=== PATIENT | male | born 1955 | race Caucasian/White ===

== ENCOUNTER 2017-01-23 13:36 | Emergency (ER) | payer OTHER ==
[2017-01-23 13:51] VITALS: BP 118/92
[2017-01-23] MEDS ORDERED: Gelfoam 12-7 ADSORBABL SPONGE* 1 EA SPONGE TOPICAL ONE (13:53)
--- NOTE | 2017-01-23 14:00 | UC ---
Hand/Wrist HPI - HPI Summary HPI Summary: Cut R index finger on a router, area of skin missing and profuse bleeding, unable to control it. Last tetanus 2012. - History Of Current Complaint Chief Complaint: UCLaceration Stated Complaint: FINGER LACERATION Time Seen by Provider: 01/23/17 13:43 Hx Obtained From: Patient ?: No Onset/Duration: Sudden Onset Severity Initially: Moderate Severity Currently: Moderate Character Of Pain: Sharp Aggravating Factor(s): Other - touch Alleviating: Compression Related History: Dominant Hand Right - Allergies/Home Medications Allergies/Adverse Reactions: Allergies Allergy/AdvReac Type Severity Reaction Status Date / Time Tramadol Allergy Unknown Verified 03/10/16 13:04 Reaction Details PMH/Surg Hx/FS Hx/Imm Hx Previously Healthy: Yes Other History Of: Negative For: Anticoagulant Therapy - Surgical History Surgical History: Yes Surgery Procedure, Year, and Place: scrotal surgery - Family History Known Family History: Positive: None, Other - no respiratory disease Negative: Cardiac Disease - Social History Alcohol Use: Daily Substance Use Type: None Smoking Status (MU): Never Smoked Tobacco - Immunization History Most Recent Tetanus Shot: Apr 2013 Review of Systems Constitutional: Negative Skin: Other - R index finger injury Eyes: Negative ENT: Negative Respiratory: Negative Cardiovascular: Negative Gastrointestinal: Negative Genitourinary: Negative Motor: Negative Neurovascular: Negative Musculoskeletal: Negative Neurological: Negative Psychological: Negative All Other Systems Reviewed And Are Negative: Yes Physical Exam Triage Information Reviewed: Yes Appearance: Well-Appearing, No Pain Distress, Well-Nourished Vital Signs: Initial Vital Signs Temp 98 F 01/23/17 13:47 Pulse 54 01/23/17 13:47 Resp 16 01/23/17 13:47 BP 118/92 01/23/17 13:47 Pulse Ox 100 01/23/17 13:47 Vital Signs Reviewed: Yes Eye Exam: Normal Eyes: Positive: Conjunctiva Clear ENT Exam: Normal ENT: Positive: Normal ENT inspection, Hearing grossly normal, Pharynx normal, TMs normal Dental Exam: Normal Neck exam: Normal Neck: Positive: Supple, Nontender, No Lymphadenopathy Respiratory Exam: Normal Respiratory: Positive: Chest non-tender, Lungs clear, Normal breath sounds, No respiratory distress, No accessory muscle use Cardiovascular Exam: Normal Cardiovascular: Positive: RRR, No Murmur Musculoskeletal Exam: Normal Neurological Exam: Normal Neurological: Positive: Alert Psychological Exam: Normal Skin Exam: Other - skin avulsion on R index finger approx 1.5cm x 1cm, significant bleeding. Wound bandaged with gel foam. Hand/Wrist Course/Dx - Differential Dx/Diagnosis Provider Diagnoses: R index finger skin avulsion. elevated blood pressure due to stress Discharge - Discharge Plan Condition: Stable Disposition: HOME Patient Education Materials: Skin Avulsion (ED) Additional Instructions: Try to keep the dressing dry and intact for 36-48 hours. After that, change your dressing (could be a regular adhesive bandage) whenever it is wet or dirty. You can wait until the gel foam comes off on its own, or you can soak it off in warm water after 5 days.
== END 2017-01-23 14:30 | disposition home or self-care (01) ==
LOC: UCEAST 13:36
DX: S61.210A Laceration without foreign body of right index finger without damage to nail, initial encounter (principal); W31.89XA Contact with other specified machinery, initial encounter; Y93.9 Activity, unspecified; Y92.9 Unspecified place or not applicable; R03.0 Elevated blood-pressure reading, without diagnosis of hypertension; Z88.5 Allergy status to narcotic agent
CPT/HCPCS: 99212; A9270-GY; G0463

== ENCOUNTER 2017-07-21 18:21 | Emergency (ER) | payer OTHER ==
[2017-07-21] MEDS ORDERED: Naproxen TAB* 250 MG PO ONE (20:15)
--- NOTE | 2017-07-21 20:21 | UC ---
Head Injury HPI - HPI Summary HPI Summary: Pt was skiing, was struck by a ski lift in the body and felt some bruising mainly in the L arm from that -- denies head or neck injury from ski lift. On the same run down the hill fell backwards and hit head on the ground, and place where goggles clasped behind his head he sustained bloody wound. Reports seeing stars after fall, then felt fuzzy/confused and still feels a little off, with only hazy memory of the ski lift and the fall on the slope. Denies current headache, any vomiting, seizures, visual changes, or trouble with balance. - History Of Current Complaint Chief Complaint: UCHeadInjury Stated Complaint: FALL Time Seen by Provider: 07/21/17 19:48 Hx Obtained From: Patient Onset/Duration: Sudden Onset Severity Currently: Mild Severity Initially: Moderate Character: Dull Aggravating Factor(s): Nothing Alleviating Factor(s): Nothing Associated Signs And Symptoms: Positive: Confusion. Negative: LOC (Time In Secs./Mins/Hrs), Memory Loss, Seizure, Neck Pain, Nausea, Vomiting - Allergies/Home Medications Allergies/Adverse Reactions: Allergies Allergy/AdvReac Type Severity Reaction Status Date / Time Tramadol Allergy Unknown Verified 07/21/17 18:36 Reaction Details PMH/Surg Hx/FS Hx/Imm Hx Previously Healthy: Yes Other History Of: Negative For: Anticoagulant Therapy - Surgical History Surgical History: Yes Surgery Procedure, Year, and Place: scrotal surgery - Family History Known Family History: Positive: None, Other - no respiratory disease Negative: Cardiac Disease - Social History Lives: With Family Alcohol Use: Occasionally Substance Use Type: None Smoking Status (MU): Never Smoked Tobacco - Immunization History Most Recent Tetanus Shot: Apr 2013 Review of Systems Constitutional: Negative Skin: Bruising, Other - cut Eyes: Negative ENT: Negative Respiratory: Negative Cardiovascular: Negative Gastrointestinal: Negative Genitourinary: Negative Motor: Negative Neurovascular: Negative Musculoskeletal: Negative Neurological: Negative Psychological: Negative Is Patient Immunocompromised?: No All Other Systems Reviewed And Are Negative: Yes Physical Exam Triage Information Reviewed: Yes Appearance: Well-Appearing, No Pain Distress, Well-Nourished Vital Signs: Initial Vital Signs Temp 98.3 F 07/21/17 18:32 Pulse 50 07/21/17 18:32 Resp 16 07/21/17 18:32 BP 128/76 01/07/18 18:32 Pulse Ox 100 07/21/17 18:32 Vital Signs Reviewed: Yes Eye Exam: Normal, Other - PERRL Eyes: Positive: Conjunctiva Clear ENT Exam: Normal ENT: Positive: Normal ENT inspection, Hearing grossly normal, Pharynx normal, TMs normal Dental Exam: Normal Dental: Negative: Percussion Tenderness @, Gross Decay/Caries @, Dental Fracture @ Neck exam: Normal, Other - no bony tenderness Neck: Positive: Supple, Nontender, No Lymphadenopathy Respiratory Exam: Normal Respiratory: Positive: Chest non-tender, Lungs clear, Normal breath sounds, No respiratory distress, No accessory muscle use Cardiovascular Exam: Normal Cardiovascular: Positive: RRR, No Murmur Musculoskeletal Exam: Normal Musculoskeletal: Positive: Strength Intact, ROM Intact, No Edema Neurological Exam: Other - serial 7s only with difficulty, 3 mistakes but able to start over and correct self. Unable to remember 3 words after 5 minute break Neurological: Positive: Alert, Muscle Tone Normal Psychological Exam: Normal Psychological: Positive: Normal Response To Family Skin Exam: Other - <1cm lac to posterior scalp, bleeding controlled Head Injury Course/Dx - Differential Dx/Diagnosis Provider Diagnoses: scalp laceration, unsutured. concussion. fall. struck by ski lift Discharge - Discharge Plan Condition: Stable Disposition: HOME Patient Education Materials: Concussion (ED) Referrals: Tyrone Santiago MD [Medical Doctor] - Additional Instructions: As we discussed, the small scalp wound should close up without problems (but don 't pick at the area). I expect you to have multiple aches and pains from your fall tomorrow. Avoid driving or working heavy machinery until you are feeling 100% normal. Some headaches and dizziness are normal for a couple days, but you should go right to the emergency department if you have severe pain, prolonged vomiting, balance problems, speech difficulty, visual disturbance, or seizures.
[2017-07-21 20:34] VITALS: BP 113/77
== END 2017-07-21 20:34 | disposition home or self-care (01) ==
LOC: UCEAST 18:21
DX: S06.0X9A Concussion with loss of consciousness of unspecified duration, initial encounter (principal); S01.01XA Laceration without foreign body of scalp, initial encounter; W31.89XA Contact with other specified machinery, initial encounter; Y93.24 Activity, cross country skiing; Y92.838 Other recreation area as the place of occurrence of the external cause; Z72.89 Other problems related to lifestyle
CPT/HCPCS: 99212; A9270-GY; G0463